=== PATIENT | male | born 1940 | race Two or more races ===

== ENCOUNTER 2019-11-17 16:41 | Inpatient (IN) | payer MEDICARE, OTHER ==
[~2019-11-17] VITALS: Ht 170.2 cm; Wt 71.6 kg
[2019-11-17 17:39] LABS: Basophils # (auto) 0.1 10 ^3/uL (0-0.2); Basophils % (auto) 0.9 % (0.0-2.0); Eosinophils # (auto) 0.2 10 ^3/uL (0-0.8); Eosinophils % (auto) 2.8 % (0.0-7.0); Hematocrit 36.6 % (41.0-53.0); Hemoglobin 12.1 g/dL (13.5-17.5); Lymphocytes # (auto) 1.4 10 ^3/uL (0.4-5.4); Mean Corpuscular Volume 91.1 fL (80.0-100.0); Monocytes # (auto) 0.9 10 ^3/uL (0-1.3); Monocytes % (auto) 11.3 % (0.0-12.0); Neutrophils # (auto) 5.2 10 ^3/uL (1.6-8.6); Nucleated Red Blood Cells % 0.1 %; Platelet Count (auto) 206 10^3/uL (140-450); Red Blood Cells 4.01 10^6/uL (4.5-5.90); Red Cell Distribution Width 14.1 % (11.8-14.3); White Blood Cell 7.7 10^3/uL (4.4-10.8)
[2019-11-17 17:47] LABS: INR 0.97 (0.9-1.15); Partial Thromboplastin Time 25.3 sec (23.0-31.2)
[2019-11-17 17:50] LABS: Albumin 3.2 g/dL (3.4-5.0); BUN/Creatinine Ratio 15.1; Calcium 8.4 mg/dL (8.5-10.1); Potassium 3.9 mmol/L (3.5-5.1)
[2019-11-17 17:53] LABS: Bilirubin, Total 0.3 mg/dL (0.2-1.0); Total Protein 6.8 g/dL (6.4-8.2)
[2019-11-17 18:01] LABS: Urine Bacteria NONE SEEN /hpf (None Seen); Urine Blood 3+ /uL (Negative); Urine WBC 223 /hpf (0 - 3)
[2019-11-17 18:02] LABS: Urine Specific Gravity 1.024 (1.001-1.035)
[2019-11-17] MEDS ORDERED: SODIUM CHLORIDE 0.9% 1,000 ML IV ONE (19:00)
[2019-11-17] MEDS ORDERED: PANTOPRAZOLE 40 MG TAB PO ONE (19:00)
[2019-11-17] MEDS ORDERED: CIPROFLOXACIN 400MG/200ML 200 ML IV ONE (19:00)
[2019-11-17] MEDS ORDERED: ONDANSETRON HCL 4 MG/2 ML VIAL IV PRN (21:30)
[2019-11-17] MEDS ORDERED: PHYTONADIONE (VIT K)10 MG/ML 1ML VIAL SUBCUT ONE (21:30)
[2019-11-17] MEDS ORDERED: LISINOPRIL 5 MG TAB PO ONE (21:30)
[2019-11-17] MEDS ORDERED: NITROGLYCERIN 0.4 MG SL TAB SL PRN (21:30)
[2019-11-17] MEDS ORDERED: ACETAMINOPHEN 325 MG TAB PO PRN (21:30)
[2019-11-17] MEDS ORDERED: MORPHINE SULF INJ 2 MG/ML SYRINGE 1ML IV PRN (21:30)
[2019-11-17] MEDS ORDERED: LIDOCAINE 2% JELLY 11ml (GLYDO) UR ONE (22:30)
[2019-11-17] MEDS ORDERED: LIDOCAINE 2% JELLY 11ml (GLYDO) ONE (22:31)
[2019-11-17] MEDS: HYDROcodone-ACET 5/325MG TAB PO PRN (23:23)
[2019-11-17 23:56] VITALS: BP 145/75
[2019-11-18 01:02] VITALS: BP 145/75
[2019-11-18 05:00] VITALS: BP 155/69
[2019-11-18 06:27] LABS: Basophils # (auto) 0 10 ^3/uL (0-0.2); Basophils % (auto) 0.7 % (0.0-2.0); Eosinophils # (auto) 0.2 10 ^3/uL (0-0.8); Eosinophils % (auto) 2.3 % (0.0-7.0); Hematocrit 33.5 % (41.0-53.0); Lymphocytes # (auto) 1.2 10 ^3/uL (0.4-5.4); Lymphocytes % (auto) 17.5 % (10.0-50.0); Mean Corpuscular Hemoglobin 29.6 pg (28.0-32.0); Mean Corpuscular Hgb Conc. 32.7 g/dL (32.0-36.0); Mean Corpuscular Volume 90.6 fL (80.0-100.0); Monocytes # (auto) 0.8 10 ^3/uL (0-1.3); Monocytes % (auto) 10.9 % (0.0-12.0); Neutrophils # (auto) 4.8 10 ^3/uL (1.6-8.6); Neutrophils % (auto) 68.6 % (37.0-80.0); Platelet Count (auto) 182 10^3/uL (140-450); Red Cell Distribution Width 13.7 % (11.8-14.3); White Blood Cell 7.1 10^3/uL (4.4-10.8)
[2019-11-18 06:47] LABS: Albumin 2.8 g/dL (3.4-5.0); Calcium 8.2 mg/dL (8.5-10.1); Potassium 4.2 mmol/L (3.5-5.1)
[2019-11-18 06:50] LABS: BUN/Creatinine Ratio 14.9; Bilirubin, Total 0.7 mg/dL (0.2-1.0)
[2019-11-18 09:00] VITALS: BP 152/71
[2019-11-18] MEDS: PANTOPRAZOLE 40 MG/10 ML VIAL INJ IV SCH (09:21)
[2019-11-18] MEDS: cefTRIAXone 1GM/50ML D5W 50 ML IV SCH (09:21)
[2019-11-18] MEDS ORDERED: ENAL10TA12 PO (11:23)
[2019-11-18 13:00] VITALS: BP 115/60
[2019-11-18 17:00] VITALS: BP 129/64
[2019-11-18] MEDS: LISINOPRIL 5 MG TAB PO SCH (21:52)
[2019-11-18] MEDS: TEMAZEPAM 15 MG CAP PO PRN (21:55)
[2019-11-18 22:00] VITALS: BP 144/59
[2019-11-19 05:00] VITALS: BP 145/72
[2019-11-19 09:00] VITALS: BP 156/74
[2019-11-19] MEDS: cefTRIAXone 1GM/50ML D5W 50 ML IV SCH (10:14)
[2019-11-19] MEDS: PANTOPRAZOLE 40 MG/10 ML VIAL INJ IV SCH (10:15)
[2019-11-19] MEDS: HYDROcodone-ACET 5/325MG TAB PO PRN (10:35)
[2019-11-19 13:09] VITALS: BP 116/61
[2019-11-19 17:00] VITALS: BP 149/72
[2019-11-19] MEDS: LISINOPRIL 5 MG TAB PO SCH (21:50)
[2019-11-19 22:08] VITALS: BP 151/72
[2019-11-20 06:11] VITALS: BP 137/71
[2019-11-20] MEDS: PANTOPRAZOLE 40 MG/10 ML VIAL INJ IV SCH (08:53)
[2019-11-20] MEDS: cefTRIAXone 1GM/50ML D5W 50 ML IV SCH (08:54)
[2019-11-20 09:00] VITALS: BP 131/65
[2019-11-20 13:00] VITALS: BP 134/69
[2019-11-20 16:56] VITALS: BP 133/71
[2019-11-20] MEDS: TEMAZEPAM 15 MG CAP PO PRN (21:58)
[2019-11-20] MEDS: LISINOPRIL 5 MG TAB PO SCH (21:58)
[2019-11-20 22:00] VITALS: BP 144/69
[2019-11-21 05:00] VITALS: BP 120/67
[2019-11-21 09:00] VITALS: BP 135/72
[2019-11-21] MEDS: cefTRIAXone 1GM/50ML D5W 50 ML IV SCH (09:00)
[2019-11-21] MEDS: PANTOPRAZOLE 40 MG/10 ML VIAL INJ IV SCH (09:00)
[2019-11-21 11:11] LABS: Basophils # (auto) 0.1 10 ^3/uL (0-0.2); Basophils % (auto) 0.7 % (0.0-2.0); Eosinophils # (auto) 0.2 10 ^3/uL (0-0.8); Eosinophils % (auto) 1.9 % (0.0-7.0); Hematocrit 36.6 % (41.0-53.0); Hemoglobin 12.1 g/dL (13.5-17.5); Lymphocytes % (auto) 12.2 % (10.0-50.0); Mean Corpuscular Hemoglobin 29.8 pg (28.0-32.0); Mean Corpuscular Volume 90.4 fL (80.0-100.0); Monocytes # (auto) 0.8 10 ^3/uL (0-1.3); Monocytes % (auto) 9.5 % (0.0-12.0); Neutrophils # (auto) 6.1 10 ^3/uL (1.6-8.6); Neutrophils % (auto) 75.7 % (37.0-80.0); Nucleated Red Blood Cells % 0.1 %; Platelet Count (auto) 217 10^3/uL (140-450); Red Blood Cells 4.05 10^6/uL (4.5-5.90); Red Cell Distribution Width 13.4 % (11.8-14.3); White Blood Cell 8.1 10^3/uL (4.4-10.8)
[2019-11-21 11:33] LABS: Calcium 8.9 mg/dL (8.5-10.1); Magnesium 2.5 mg/dL (1.6-2.6); Potassium 3.9 mmol/L (3.5-5.1)
[2019-11-21 11:37] LABS: BUN/Creatinine Ratio 21.2
[2019-11-21 14:21] VITALS: BP 122/66
[2019-11-21 18:00] VITALS: BP 126/63
[2019-11-21 22:00] VITALS: BP 119/59
[2019-11-21] MEDS: LISINOPRIL 5 MG TAB PO SCH (22:02)
[2019-11-21] MEDS: TEMAZEPAM 15 MG CAP PO PRN (22:02)
[2019-11-22 05:00] VITALS: BP 134/64
[2019-11-22] MEDS ORDERED: LIDOCAINE 1% HCL (LOCAL ANESTH.) INJ 20ML MDV ONE (07:03)
[2019-11-22] MEDS ORDERED: SUCCINYLCHOLINE CHLORIDE 20 MG/ML 10ML VIAL IV ONE (07:03)
[2019-11-22] MEDS ORDERED: fentaNYL CITRATE 100 MCG/2 ML VL ONE ×2 (07:13→08:09)
[2019-11-22] MEDS ORDERED: MIDAZOLAM HCL 1MG/1ML-2 ML VIAL ONE (07:13)
[2019-11-22] MEDS ORDERED: ONDANSETRON HCL 4 MG/2 ML VIAL ONE (07:14)
[2019-11-22] MEDS ORDERED: SODIUM CHLORIDE LOCK 10 ML ONE (07:14)
[2019-11-22] MEDS ORDERED: PROPOFOL 10 MG/ML 20 ML IV ONE (07:14)
[2019-11-22] MEDS ORDERED: ROCURONIUM 10MG/ML 10ML VIAL IV ONE (07:16)
[2019-11-22] MEDS ORDERED: CIPROFLOXACIN 400MG/200ML 200 ML IV ONE (07:33)
[2019-11-22] MEDS ORDERED: TETRACAINE 1% INJ 2 ML VIAL IJ ONE (07:34)
[2019-11-22] MEDS ORDERED: KETAMINE HCL 10 ML ONE (08:09)
[2019-11-22] MEDS ORDERED: MORPHINE SULFATE 4 MG/ML SYR/VIAL IV PRN (08:30)
[2019-11-22] MEDS ORDERED: METOCLOPRAMIDE HCL 5MG/ml INJ 2ml VIAL IV PRN (08:30)
[2019-11-22] MEDS ORDERED: HYDROmorphone HCL 2 MG/ML VL IV PRN (08:30)
[2019-11-22] MEDS: cefTRIAXone 1GM/50ML D5W 50 ML IV SCH (09:00)
[2019-11-22] MEDS: PANTOPRAZOLE 40 MG/10 ML VIAL INJ IV SCH (10:00)
[2019-11-22 10:35] VITALS: BP 147/69
[2019-11-22 11:04] LABS: INR 0.98 (0.9-1.15); Partial Thromboplastin Time 26.7 sec (23.0-31.2)
[2019-11-22] MEDS: HYDROcodone-ACET 5/325MG TAB PO PRN (12:13)
[2019-11-22] MEDS: cloNIDine HCL 0.1 MG TAB PO SCH ×4 (12:30→21:45)
[2019-11-22] MEDS ORDERED: MORPHINE SULF INJ 2 MG/ML SYRINGE 1ML IV PRN (12:30)
[2019-11-22 13:00] VITALS: BP 175/74
[2019-11-22 13:30] VITALS: BP 149/67
[2019-11-22 17:00] VITALS: BP 154/93
[2019-11-22] MEDS: LISINOPRIL 5 MG TAB PO SCH (21:44)
[2019-11-22] MEDS: TEMAZEPAM 15 MG CAP PO PRN (21:45)
[2019-11-22 22:00] VITALS: BP 153/80
[2019-11-23 05:09] VITALS: BP 120/53
[2019-11-23] MEDS: cloNIDine HCL 0.1 MG TAB PO SCH ×3 (05:42→14:00)
[2019-11-23] MEDS: PANTOPRAZOLE 40 MG/10 ML VIAL INJ IV SCH (08:56)
[2019-11-23] MEDS: cefTRIAXone 1GM/50ML D5W 50 ML IV SCH (08:56)
[2019-11-23 09:00] VITALS: BP 91/57
[2019-11-23] MEDS ORDERED: BELLADONNA ALKAL/OPIUM (16.2/30MG) RECT SUPP PR SCH (10:00)
[2019-11-23 13:00] VITALS: BP 93/50
[2019-11-23 15:22] VITALS: BP_SYST 104; BP_SYST 93; BP_DIAS 50
[2019-11-23 16:51] VITALS: BP 104/50
== END 2019-11-23 19:56 | disposition home health service (06) | DRG 713 ==
LOC: ER 16:41 → TELE 16:42 → TELE-WESTW 22:56
PROVIDERS: ADMIT Nurse Practitioner; ATTEND Internal Medicine
PROC: 0VB08ZZ Excision of Prostate, Via Natural or Artificial Opening Endoscopic (ICD-10-PCS; principal; 2019-11-22 07:38)
DX: N40.0 Benign prostatic hyperplasia without lower urinary tract symptoms (principal); R71.0 Precipitous drop in hematocrit; Z20.828 Contact with and (suspected) exposure to other viral communicable diseases; R31.0 Gross hematuria; I10 Essential (primary) hypertension; K44.9 Diaphragmatic hernia without obstruction or gangrene; K86.9 Disease of pancreas, unspecified; E88.09 Other disorders of plasma-protein metabolism, not elsewhere classified; Z98.42 Cataract extraction status, left eye; Z98.41 Cataract extraction status, right eye; Z79.899 Other long term (current) drug therapy
CPT/HCPCS: 36415; 71045; 74176; 80048; 80053; 81001; 83735; 84154; 85025; 85610; 85730; 86850; 86900; 86901; 87081; 93005; C9113; G0378; J0330; J0696; J2001; J2250; J2405; J2704; J3430

== ENCOUNTER 2020-06-30 12:46 | Inpatient (IN) | payer OTHER ==
[~2020-06-30] VITALS: Ht 170.2 cm; Wt 73.1 kg
[~2020-06-30 12:46] MED LIST: ENAL10TA12 PO
[2020-06-30 13:39] LABS: Urine Bacteria MANY /hpf (None Seen); Urine Blood 3+ /uL (Negative); Urine Specific Gravity 1.011 (1.001-1.035); Urine WBC 727 /hpf (0 - 3); Urine WBC Clumps PRESENT /hpf (None Seen)
[2020-06-30 14:22] LABS: Albumin 3.3 g/dL (3.4-5.0); Calcium 8.8 mg/dL (8.5-10.1); Potassium 4.4 mmol/L (3.5-5.1)
[2020-06-30 14:27] LABS: BUN/Creatinine Ratio 18.8; Bilirubin, Total 0.5 mg/dL (0.2-1.0); Total Protein 7.3 g/dL (6.4-8.2)
[2020-06-30] MEDS ORDERED: SODIUM CHLORIDE 0.9% 500 ML IV ONE (14:45)
[2020-06-30] MEDS ORDERED: cefTRIAXone 1GM/50ML D5W 50 ML IV ONE (14:45)
[2020-06-30 14:51] LABS: Basophils # (auto) 0 10 ^3/uL (0-0.2); Basophils % (auto) 0.6 % (0.0-2.0); Eosinophils # (auto) 0.1 10 ^3/uL (0-0.8); Eosinophils % (auto) 0.8 % (0.0-7.0); Hematocrit 43.1 % (41.0-53.0); Hemoglobin 14.9 g/dL (13.5-17.5); Lymphocytes # (auto) 0.9 10 ^3/uL (0.4-5.4); Lymphocytes % (auto) 11.3 % (10.0-50.0); Mean Corpuscular Hemoglobin 28.4 pg (28.0-32.0); Mean Corpuscular Hgb Conc. 34.7 g/dL (32.0-36.0); Mean Corpuscular Volume 81.9 fL (80.0-100.0); Monocytes # (auto) 0.9 10 ^3/uL (0-1.3); Monocytes % (auto) 10.4 % (0.0-12.0); Neutrophils # (auto) 6.4 10 ^3/uL (1.6-8.6); Neutrophils % (auto) 76.9 % (37.0-80.0); Platelet Count (auto) 158 10^3/uL (140-450); Red Blood Cells 5.26 10^6/uL (4.5-5.90); White Blood Cell 8.4 10^3/uL (4.4-10.8)
[2020-06-30 14:56] LABS: Red Cell Distribution Width 27.4 % (11.8-14.3)
[2020-06-30] MEDS ORDERED: TEMAZEPAM 15 MG CAP PO PRN (16:00)
[2020-06-30] MEDS ORDERED: HYDROcodone-ACET 5/325MG TAB PO PRN (16:00)
[2020-06-30] MEDS ORDERED: ONDANSETRON HCL 4 MG/2 ML VIAL IV PRN (16:00)
[2020-06-30] MEDS ORDERED: ALUM & MAG HYDROX-SIMETH LIQ(MAALOX) 30 ML PO PRN (16:00)
[2020-06-30] MEDS ORDERED: DOCUSATE SOD 100 MG CAP PO PRN (16:00)
[2020-06-30] MEDS ORDERED: MORPHINE SULF INJ 2 MG/ML SYRINGE 1ML IV PRN ×2 (16:00)
[2020-06-30] MEDS ORDERED: NITROGLYCERIN 0.4 MG SL TAB SL PRN (16:00)
[2020-06-30] MEDS ORDERED: ACETAMINOPHEN 325 MG TAB PO PRN (16:00)
[2020-06-30 16:32] LABS: INR 0.98 (0.9-1.15); Partial Thromboplastin Time 27.4 sec (23.0-31.2)
[2020-06-30 22:40] VITALS: BP 165/87
[2020-06-30 23:08] VITALS: BP 165/84
[2020-06-30] MEDS ORDERED: ENAL20TA8 PO (23:58)
[2020-06-30] MEDS ORDERED: AMLO-489 PO (23:58)
[2020-06-30] MEDS ORDERED: DOCU-190 PO (23:58)
[2020-06-30] MEDS ORDERED: FERR325T20 PO (23:58)
[2020-06-30] MEDS ORDERED: KETO2CRE4 TOP (23:58)
[2020-06-30] MEDS ORDERED: LACT12LO26 TOP (23:58)
[2020-07-01] MEDS ORDERED: MORPHINE SULF INJ 2 MG/ML SYRINGE 1ML IV PRN ×2 (01:30)
[2020-07-01] MEDS ORDERED: ACETAMINOPHEN 325 MG TAB PO PRN (01:30)
[2020-07-01] MEDS ORDERED: ONDANSETRON HCL 4 MG/2 ML VIAL IV PRN (01:30)
[2020-07-01] MEDS ORDERED: ALUM & MAG HYDROX-SIMETH LIQ(MAALOX) 30 ML PO PRN (01:30)
[2020-07-01] MEDS ORDERED: DOCUSATE SOD 100 MG CAP PO PRN (01:30)
[2020-07-01] MEDS ORDERED: HYDROcodone-ACET 5/325MG TAB PO PRN (01:30)
[2020-07-01] MEDS ORDERED: NITROGLYCERIN 0.4 MG SL TAB SL PRN (01:30)
[2020-07-01] MEDS ORDERED: TEMAZEPAM 15 MG CAP PO PRN (01:45)
[2020-07-01 05:00] VITALS: BP 175/81
[2020-07-01 09:00] VITALS: BP 158/76
[2020-07-01] MEDS ORDERED: cefTRIAXone 1GM/50ML D5W 50 ML IV SCH (09:00)
[2020-07-01] MEDS: ENALAPRIL MALEATE 10 MG TAB PO SCH (09:07)
[2020-07-01] MEDS: cefTRIAXone 1GM/50ML D5W 50 ML IV SCH (09:08)
[2020-07-01] MEDS ORDERED: ENALAPRIL MALEATE 10 MG TAB PO SCH (10:00)
[2020-07-01 13:00] VITALS: BP 147/79
[2020-07-01 16:43] VITALS: BP 165/81
[2020-07-01 22:18] VITALS: BP 133/77
[2020-07-02 05:00] VITALS: BP 123/66
[2020-07-02 05:58] LABS: Basophils # (auto) 0 10 ^3/uL (0-0.2); Basophils % (auto) 0.5 % (0.0-2.0); Eosinophils # (auto) 0.1 10 ^3/uL (0-0.8); Eosinophils % (auto) 0.8 % (0.0-7.0); Hematocrit 41.8 % (41.0-53.0); Hemoglobin 14.1 g/dL (13.5-17.5); Lymphocytes # (auto) 1.1 10 ^3/uL (0.4-5.4); Lymphocytes % (auto) 11.3 % (10.0-50.0); Mean Corpuscular Hemoglobin 27.8 pg (28.0-32.0); Mean Corpuscular Hgb Conc. 33.7 g/dL (32.0-36.0); Mean Corpuscular Volume 82.5 fL (80.0-100.0); Monocytes # (auto) 1.1 10 ^3/uL (0-1.3); Neutrophils # (auto) 7.2 10 ^3/uL (1.6-8.6); Neutrophils % (auto) 75.4 % (37.0-80.0); Platelet Count (auto) 140 10^3/uL (140-450); Red Blood Cells 5.07 10^6/uL (4.5-5.90); White Blood Cell 9.6 10^3/uL (4.4-10.8)
[2020-07-02 06:19] LABS: Calcium 8.8 mg/dL (8.5-10.1); Potassium 4.1 mmol/L (3.5-5.1)
[2020-07-02 06:21] LABS: Red Cell Distribution Width 26.9 % (11.8-14.3)
[2020-07-02 06:22] LABS: BUN/Creatinine Ratio 24.1
[2020-07-02 09:00] VITALS: BP 116/69
[2020-07-02] MEDS: cefTRIAXone 1GM/50ML D5W 50 ML IV SCH (09:00)
[2020-07-02] MEDS: ENALAPRIL MALEATE 10 MG TAB PO SCH (09:10)
[2020-07-02 13:00] VITALS: BP 125/66
[2020-07-02] MEDS ORDERED: TEMAZEPAM 15 MG CAP PO PRN (13:00)
[2020-07-02 16:39] VITALS: BP 118/66
[2020-07-02 21:29] VITALS: BP 104/52
[2020-07-03 05:00] VITALS: BP 111/64
[2020-07-03] MEDS: cefTRIAXone 1GM/50ML D5W 50 ML IV SCH ×2 (08:30→09:00)
[2020-07-03 09:00] VITALS: BP 128/59
[2020-07-03] MEDS: ENALAPRIL MALEATE 10 MG TAB PO SCH (09:30)
[2020-07-03] MEDS ORDERED: SODIUM CHLORIDE 0.9% 1,000 ML IV ONE ×2 (12:00→16:30)
[2020-07-03 12:39] VITALS: BP 117/65
[2020-07-03] MEDS ORDERED: CIPR-173 PO (13:17)
[2020-07-03 16:42] VITALS: BP 139/70
== END 2020-07-03 19:05 | disposition home or self-care (01) | DRG 690 ==
LOC: ER 12:46 → TELE-CENTR 15:59 → ER 22:33 → TELE-CENTR 07-02 09:26
PROVIDERS: ADMIT Hospitalist; ATTEND Hospitalist
PROC: 0T9B70Z Drainage of Bladder with Drainage Device, Via Natural or Artificial Opening (ICD-10-PCS; principal; 2020-07-01)
PROC: 3E1K78Z Irrigation of Genitourinary Tract using Irrigating Substance, Via Natural or Artificial Opening (ICD-10-PCS; 2020-07-01)
PROC: 0TPBX0Z Removal of Drainage Device from Bladder, External Approach (ICD-10-PCS; 2020-07-03)
DX: N39.0 Urinary tract infection, site not specified (principal); R31.0 Gross hematuria; N40.0 Benign prostatic hyperplasia without lower urinary tract symptoms; J45.909 Unspecified asthma, uncomplicated; I11.9 Hypertensive heart disease without heart failure; N32.9 Bladder disorder, unspecified; Z20.822 Contact with and (suspected) exposure to COVID-19; Z82.5 Family history of asthma and other chronic lower respiratory diseases
CPT/HCPCS: 36415; 74176; 80048; 80053; 81001; 85025; 85610; 85730; 87086; 87426; 96365; 96375; G0378; J0696

== ENCOUNTER 2022-09-26 15:19 | Emergency (ER) | payer OTHER ==
[~2022-09-26] VITALS: Ht 167.6 cm; Wt 70.1 kg
[~2022-09-26 15:19] MED LIST changes: +AMLO1TAB22 PO; +CIPR-173 PO; +DOCU-190 PO; -ENAL10TA12 PO; +ENAL1TAB46 PO; +ENAL1TAB48 PO; +FERR325T20 PO; +KETO2CRE4 TOP; +LACT12LO26 TOP
[2022-09-26 16:09] LABS: Urine Bacteria NONE SEEN /hpf (None Seen); Urine Blood 2+ /uL (Negative); Urine Clarity HAZY (Clear); Urine Color Yellow (Yellow); Urine Mucus FEW (None Seen); Urine Protein, UAD 1+ (Negative); Urine Specific Gravity 1.014 (1.001-1.035); Urine Urobilinogen Normal (Negative); Urine WBC 113 /hpf (0 - 3)
[2022-09-26 16:15] LABS: Basophils # (auto) 0.1 10 ^3/uL (0-0.2); Basophils % (auto) 0.6 % (0.0-2.0); Eosinophils # (auto) 0.1 10 ^3/uL (0-0.8); Eosinophils % (auto) 0.5 % (0.0-7.0); Hematocrit 38.2 % (41.0-53.0); Hemoglobin 12.5 g/dL (13.5-17.5); Lymphocytes % (auto) 7.4 % (10.0-50.0); Mean Corpuscular Hemoglobin 27.6 pg (28.0-32.0); Mean Corpuscular Hgb Conc. 32.7 g/dL (32.0-36.0); Mean Corpuscular Volume 84.4 fL (80.0-100.0); Monocytes # (auto) 1.9 10 ^3/uL (0-1.3); Neutrophils # (auto) 10.6 10 ^3/uL (1.6-8.6); Neutrophils % (auto) 77.5 % (37.0-80.0); Nucleated Red Blood Cells % 0.3 %; Red Blood Cells 4.52 10^6/uL (4.5-5.90); Red Cell Distribution Width 17.8 % (11.8-14.3); White Blood Cell 13.6 10^3/uL (4.4-10.8)
[2022-09-26 16:16] LABS: COVID19 ANTIGEN SOFIA FIA POSITIVE (NEGATIVE)
[2022-09-26 16:31] LABS: Albumin 3.4 g/dL (3.4-5.0); Calcium 12.6 mg/dL (8.5-10.1); Magnesium 2.5 mg/dL (1.6-2.6); Potassium 4.3 mmol/L (3.5-5.1)
[2022-09-26 16:35] LABS: Bilirubin, Total 0.8 mg/dL (0.2-1.0); Total Protein 7.6 g/dL (6.4-8.2)
[2022-09-26] MEDS ORDERED: LEVO750T8 PO (17:10)
[2022-09-26] MEDS ORDERED: IBUP-1454 PO (17:10)
[2022-09-26] MEDS ORDERED: ACET500T58 PO (17:10)
[2022-09-26 17:23] VITALS: RESP 15; O2SAT 98
[2022-09-26 17:27] VITALS: BP 104/49; PULSE 66; RESP 16; O2SAT 94
== END 2022-09-26 17:31 | disposition home or self-care (01) ==
LOC: ER 15:19
DX: U07.1 COVID-19 (principal); N39.0 Urinary tract infection, site not specified; K86.9 Disease of pancreas, unspecified; R16.0 Hepatomegaly, not elsewhere classified
CPT/HCPCS: 36415; 71045; 74176; 80053; 81001; 83735; 83880; 84484; 85025; 87426; 93005

== ENCOUNTER 2022-10-21 11:52 | Inpatient (IN) | payer OTHER ==
[~2022-10-21] VITALS: Ht 170.2 cm; Wt 63.0 kg
[2022-10-21] MEDS: SODIUM CHLORIDE 0.9% 1,000 ML IV SCH (01:30)
[~2022-10-21 11:52] MED LIST changes: +ACET500T58 PO; +IBUP-1454 PO; +LEVO750T8 PO
[2022-10-21 13:00] LABS: Basophils # (auto) 0.1 10 ^3/uL (0-0.2); Basophils % (auto) 0.6 % (0.0-2.0); Eosinophils # (auto) 0.1 10 ^3/uL (0-0.8); Eosinophils % (auto) 0.5 % (0.0-7.0); Hematocrit 37.5 % (41.0-53.0); Hemoglobin 12.4 g/dL (13.5-17.5); Lymphocytes % (auto) 6.8 % (10.0-50.0); Mean Corpuscular Hemoglobin 28.8 pg (28.0-32.0); Mean Corpuscular Volume 87.5 fL (80.0-100.0); Monocytes # (auto) 1.5 10 ^3/uL (0-1.3); Monocytes % (auto) 10.5 % (0.0-12.0); Neutrophils % (auto) 81.6 % (37.0-80.0); Nucleated Red Blood Cells % 0.1 %; Red Blood Cells 4.28 10^6/uL (4.5-5.90); Red Cell Distribution Width 17.8 % (11.8-14.3); White Blood Cell 14.7 10^3/uL (4.4-10.8)
[2022-10-21 13:09] LABS: Alanine Aminotransferase 56 U/L (7-40); Albumin 4.2 g/dL (3.2-4.8); Alkaline Phosphatase 549 U/L (46-116); Anion Gap 10.9 (5-15); Aspartate Aminotransferase 132 U/L (13-40); BUN/Creatinine Ratio 20.4 (10.0-20.0); Blood Urea Nitrogen 44 mg/dL (9-23); Carbon Dioxide 24.1 mmol/L (20-30); Chloride 106 mmol/L (98-107); Glucose 127 mg/dL (74-106); Sodium 141 mmol/L (136-145)
[2022-10-21 13:10] LABS: Bilirubin, Total 1.1 mg/dL (0.2-1.0); Total Protein 7.7 g/dL (5.7-8.2)
[2022-10-21 13:23] LABS: Calcium 15.5 mg/dL (8.5-10.1)
[2022-10-21 14:09] LABS: Urine Bacteria NONE SEEN /hpf (None Seen); Urine Blood 3+ /uL (Negative); Urine Budding Yeast MODERATE /hpf (None Seen); Urine Clarity CLOUDY (Clear); Urine Color Yellow (Yellow); Urine Protein, UAD 2+ (Negative); Urine Specific Gravity 1.015 (1.001-1.035); Urine Urobilinogen Normal (Negative); Urine WBC 670 /hpf (0 - 3); Urine WBC Clumps PRESENT /hpf (None Seen)
[2022-10-21 14:36] LABS: Blood Alcohol < 3.0 mg/dL (<10); Magnesium 2.2 mg/dL (1.6-2.6)
[2022-10-21 14:47] LABS: COVID19 ANTIGEN SOFIA FIA NEGATIVE (NEGATIVE)
[2022-10-21] MEDS ORDERED: PIPERACILLIN-TAZOB 3.375GM 100 ML IV SCH (17:00)
[2022-10-21] MEDS ORDERED: cefTRIAXone 1GM/50ML D5W 50 ML IV ONE (17:15)
[2022-10-21] MEDS ORDERED: ACETAMINOPHEN 325 MG TAB PO PRN (17:45)
[2022-10-21] MEDS ORDERED: MORPHINE SULFATE INJ 2 MG/ml SYRG IV PRN ×2 (17:45)
[2022-10-21] MEDS ORDERED: ZOLEDRONIC ACID 4 MG in SODIUM CHL 0.9% 100 ML IV ONE (17:45)
[2022-10-21] MEDS ORDERED: ONDANSETRON HCL 4 MG/2 ML VIAL IV PRN (17:45)
[2022-10-21] MEDS ORDERED: DOCUSATE SOD 100 MG CAP PO PRN (17:45)
[2022-10-21] MEDS ORDERED: HYDROcodone-ACET 5/325MG TAB PO PRN (17:45)
[2022-10-21] MEDS ORDERED: SODIUM CHLORIDE 0.9% 1,000 ML IV ONE (17:45)
[2022-10-21] MEDS ORDERED: NITROGLYCERIN 0.4 MG SL TAB SL PRN (17:45)
[2022-10-21] MEDS: TAMSULOSIN HYDROCHLORIDE 0.4 MG CAP PO SCH (22:38)
[2022-10-21 23:17] VITALS: PULSE 82; RESP 19; O2SAT 94
[2022-10-22] MEDS: SODIUM CHLORIDE 0.9% 1,000 ML IV SCH (02:00)
[2022-10-22 07:20] VITALS: PULSE 89; RESP 21; O2SAT 96
[2022-10-22 08:04] LABS: Basophils # (auto) 0.1 10 ^3/uL (0-0.2); Basophils % (auto) 0.5 % (0.0-2.0); Eosinophils # (auto) 0.1 10 ^3/uL (0-0.8); Eosinophils % (auto) 0.5 % (0.0-7.0); Hematocrit 37.9 % (41.0-53.0); Hemoglobin 12.2 g/dL (13.5-17.5); Lymphocytes # (auto) 0.5 10 ^3/uL (0.4-5.4); Lymphocytes % (auto) 3.8 % (10.0-50.0); Mean Corpuscular Hemoglobin 28.4 pg (28.0-32.0); Mean Corpuscular Hgb Conc. 32.3 g/dL (32.0-36.0); Mean Corpuscular Volume 87.9 fL (80.0-100.0); Monocytes # (auto) 0.9 10 ^3/uL (0-1.3); Monocytes % (auto) 6.7 % (0.0-12.0); Neutrophils # (auto) 12.4 10 ^3/uL (1.6-8.6); Neutrophils % (auto) 88.5 % (37.0-80.0); Nucleated Red Blood Cells % 0.1 %; Red Blood Cells 4.31 10^6/uL (4.5-5.90); Red Cell Distribution Width 17.7 % (11.8-14.3)
[2022-10-22] MEDS ORDERED: MEGE20TA4 PO (08:35)
[2022-10-22] MEDS ORDERED: TAMS1CAP25 PO (08:35)
[2022-10-22 08:40] LABS: Alanine Aminotransferase 55 U/L (7-40); Alkaline Phosphatase 524 U/L (46-116); Anion Gap 9.7 (5-15); Aspartate Aminotransferase 134 U/L (13-40); BUN/Creatinine Ratio 20.2 (10.0-20.0); Bilirubin, Total 1.4 mg/dL (0.2-1.0); Blood Urea Nitrogen 40 mg/dL (9-23); Carbon Dioxide 26.3 mmol/L (20-30); Chloride 106 mmol/L (98-107); Glucose 88 mg/dL (74-106); Potassium 3.7 mmol/L (3.5-5.1); Sodium 142 mmol/L (136-145)
[2022-10-22 08:41] LABS: Total Protein 7.5 g/dL (5.7-8.2)
[2022-10-22 08:54] LABS: Calcium 14.8 mg/dL (8.5-10.1)
[2022-10-22] MEDS: FINASTERIDE 5 MG TAB PO SCH ×3 (09:36→10:00)
[2022-10-22 10:05] LABS: INR 1.15 (0.9-1.15); Partial Thromboplastin Time 25.1 SEC (24.5-34.5)
[2022-10-22] MEDS ORDERED: D5W/SOD CHL 0.45% 1,000 ML IV SCH (10:45)
[2022-10-22] MEDS: D5W/SOD CHL 0.45% 1,000 ML IV SCH ×2 (11:40→22:02)
[2022-10-22] MEDS ORDERED: PIPERACILLIN-TAZOB 3.375GM 100 ML IV SCH (12:00)
[2022-10-22] MEDS ORDERED: MIDAZOLAM HCL 2MG/2ML 2ml VIAL (1mg/ml) IV ONE (12:30)
[2022-10-22] MEDS ORDERED: fentaNYL CITRATE 100 MCG/2 ML VL IV ONE (12:30)
[2022-10-22] MEDS ORDERED: fentaNYL CITRATE 100 MCG/2 ML VL ONE (12:31)
[2022-10-22] MEDS ORDERED: MIDAZOLAM HCL 2MG/2ML 2ml VIAL (1mg/ml) ONE (12:31)
[2022-10-22] MEDS ORDERED: LIDOCAINE 2%HCL (LOCAL ANESTH.) INJ 10ml MDV ONE (12:39)
[2022-10-22 13:01] LABS: Protein, Urine 66.3 mg/dL (0.0-11.9)
[2022-10-22 13:04] LABS: Creatinine, Urine 31.7 mg/dL (30.0-125.0); Urine Protein/Creatinine Ratio 2.09
[2022-10-22] MEDS: CEFEPIME 1GM/ 50ML 50 ML IV SCH (17:48)
[2022-10-22] MEDS: TAMSULOSIN HYDROCHLORIDE 0.4 MG CAP PO SCH (17:51)
[2022-10-22 17:52] VITALS: BP 141/75; PULSE 87; RESP 18; TEMP 98.5; O2SAT 100
[2022-10-22 20:00] VITALS: PULSE 91; PULSE 95; RESP 22; O2SAT 95
[2022-10-22 21:30] VITALS: BP 134/65; PULSE 125; RESP 22; TEMP 101.5; O2SAT 95
[2022-10-22] MEDS: TEMAZEPAM 15 MG CAP PO PRN (22:10)
[2022-10-22] MEDS: ACETAMINOPHEN 325 MG TAB PO PRN (22:11)
[2022-10-22] MEDS: METOPROLOL TARTRATE 1MG/1ML-5ML VIAL IV PRN (22:19)
[2022-10-23] VITALS (8 sets, daily range): BP systolic 122–154; BP diastolic 47–77; PULSE 77–97; RESP 16–20; TEMP 98.2–100.6; O2SAT 92–96
[2022-10-23] MEDS: D5W/SOD CHL 0.45% 1,000 ML IV SCH ×3 (05:03→20:00)
[2022-10-23] MEDS: CEFEPIME 1GM/ 50ML 50 ML IV SCH ×2 (05:03→17:58)
[2022-10-23 06:00] LABS: Alanine Aminotransferase 59 U/L (7-40); Albumin 3.9 g/dL (3.2-4.8); Alkaline Phosphatase 421 U/L (46-116); Anion Gap 9.4 (5-15); Aspartate Aminotransferase 156 U/L (13-40); Bilirubin, Total 1.7 mg/dL (0.2-1.0); Blood Urea Nitrogen 43 mg/dL (9-23); Calcium 12.7 mg/dL (8.5-10.1); Carbon Dioxide 25.6 mmol/L (20-30); Chloride 106 mmol/L (98-107); Glucose 114 mg/dL (74-106); Potassium 3.1 mmol/L (3.5-5.1); Sodium 141 mmol/L (136-145)
[2022-10-23 06:01] LABS: Total Protein 7.1 g/dL (5.7-8.2)
[2022-10-23 08:06] LABS: PSA Free 3.37 ng/mL
[2022-10-23] MEDS ORDERED: HALOPERIDOL LACTATE 5 MG/ML INJ VIAL IM PRN (10:00)
[2022-10-23] MEDS: ACETAMINOPHEN 325 MG TAB PO PRN (10:10)
[2022-10-23] MEDS: FINASTERIDE 5 MG TAB PO SCH (10:10)
[2022-10-23] MEDS: POTASSIUM CHL 20MEQ/100ML 100 ML IV SCH ×2 (13:10→14:44)
[2022-10-23] MEDS: TAMSULOSIN HYDROCHLORIDE 0.4 MG CAP PO SCH (19:29)
[2022-10-23] MEDS: TEMAZEPAM 15 MG CAP PO PRN (23:21)
[2022-10-23] MEDS: METOPROLOL TARTRATE 1MG/1ML-5ML VIAL IV PRN (23:32)
[2022-10-24] MEDS: D5W/SOD CHL 0.45% 1,000 ML IV SCH ×2 (04:00→12:00)
[2022-10-24 05:00] VITALS: BP 132/85; PULSE 82; RESP 16; TEMP 98.2; O2SAT 94
[2022-10-24] MEDS: CEFEPIME 1GM/ 50ML 50 ML IV SCH ×2 (05:03→17:00)
[2022-10-24 06:33] LABS: Alanine Aminotransferase 62 U/L (7-40); Alkaline Phosphatase 383 U/L (46-116); Anion Gap 8.7 (5-15); Blood Urea Nitrogen 45 mg/dL (9-23); Calcium 11.2 mg/dL (8.7-10.4); Carbon Dioxide 22.3 mmol/L (20-30); Chloride 111 mmol/L (98-107); Glucose 124 mg/dL (74-106); Potassium 3.5 mmol/L (3.5-5.1); Sodium 142 mmol/L (136-145)
[2022-10-24 06:35] LABS: Albumin 3.5 g/dL (3.2-4.8); Aspartate Aminotransferase 127 U/L (13-40); Bilirubin, Total 1.3 mg/dL (0.2-1.0); Total Protein 6.6 g/dL (5.7-8.2)
[2022-10-24 08:00] VITALS: BP 148/68; PULSE 68; PULSE 83; RESP 18; TEMP 98.6; O2SAT 94
[2022-10-24] MEDS ORDERED: AMOX500T86 PO (08:16)
[2022-10-24] MEDS ORDERED: FIN5T PO (08:16)
[2022-10-24 08:30] VITALS: O2SAT 96
[2022-10-24 09:37] LABS: Hepatitis B Surface Antigen Negative (Negative)
[2022-10-24] MEDS: FINASTERIDE 5 MG TAB PO SCH (09:56)
[2022-10-24 09:58] LABS: Hepatitis C Antibody Negative (Negative)
[2022-10-24 13:00] VITALS: BP 139/62; PULSE 63; RESP 18; TEMP 97.2; O2SAT 95
[2022-10-24 17:17] VITALS: BP 128/64; PULSE 72; RESP 17; TEMP 97.8; O2SAT 97
== END 2022-10-24 17:18 | disposition hospice, home (50) | DRG 435 ==
LOC: ER 11:52 → EEVIPCON 17:38 → TELE 17:38 → TELE-E-ADS 10-22 17:16
PROVIDERS: ADMIT Hospitalist; ATTEND Hospitalist
PROC: 0FB13ZX Excision of Right Lobe Liver, Percutaneous Approach, Diagnostic (ICD-10-PCS; principal; 2022-10-22)
DX: C25.2 Malignant neoplasm of tail of pancreas (principal); N17.0 Acute kidney failure with tubular necrosis; C78.7 Secondary malignant neoplasm of liver and intrahepatic bile duct; N10 Acute pyelonephritis; E86.0 Dehydration; E83.52 Hypercalcemia; R16.0 Hepatomegaly, not elsewhere classified; K74.60 Unspecified cirrhosis of liver; Z20.822 Contact with and (suspected) exposure to COVID-19; E87.6 Hypokalemia; I10 Essential (primary) hypertension; N40.0 Benign prostatic hyperplasia without lower urinary tract symptoms; Z82.5 Family history of asthma and other chronic lower respiratory diseases; Z91.81 History of falling
CPT/HCPCS: 10005; 36415; 70450; 71045; 72192; 74150; 76700; 77012; 80053; 80320; 81001; 82140; 82306; 82378; 82570; 83605; 83735; 83970; 84100; 84154; 84156; 84300; 85025; 85610; 85730; 86300; 86301; 86304; 86803; 87040; 87086; 87340; 87426; 92610; 93005; 97163; G0378; J0696; J2001; J2250; J2405; J2543; J3480; J3489